=== PATIENT | female | born 1995 | race African-American/Black ===

== ENCOUNTER 2017-08-26 01:52 | Emergency (ER) | payer OTHER ==
[2017-08-26 02:08] VITALS: BMI 23.4
--- NOTE | 2017-08-26 03:49 | PDOC ---
History of Present Illness - General Chief Complaint: Pain Stated Complaint: ABDOMINAL PAIN Time Seen by Provider: 08/26/17 02:26 - History of Present Illness Initial Comments: 08/26/17 03:49 CHIEF COMPLAINT: suprapubic pain HISTORY OF PRESENT ILLNESS: 21 yo F with hx of recent miscarriage presents to ED with severe suprapubic and b/l pelvic pain since tonight. Patient denies any nausea, vomiting, or diarrhea, and that her last bowel movement was today. Patient denies any vaginal bleeding or unusual discharge. Patient reports negative STD testing 3 months ago. PAST MEDICAL HISTORY: Denies past medical history FAMILY HISTORY: Denies SOCIAL HISTORY: Denies tobacco, alcohol, illicit drug use. SURGICAL HISTORY: Denies ALLERGIES: No known drug allergies REVIEW OF SYSTEMS General/Constitutional: Denies fever or chills. Denies weakness, weight change. HEENT: Denies change in vision. Denies ear pain or discharge. Denies sore throat. Cardiovascular: Denies chest pain or shortness of breath. Respiratory: Denies cough, wheezing, or hemoptysis. Gastrointestinal: Denies nausea, vomiting, diarrhea or constipation. Denies rectal bleeding. Genitourinary: Suprapubic pain. Denies dysuria, frequency, or change in urination. Musculoskeletal: Denies joint or muscle swelling or pain. Denies neck or back pain. Skin and breasts: Denies rash or easy bruising. Neurologic: Denies headache, vertigo, loss of consciousness, or loss of sensation. Psychiatric: Denies depression or anxiety. PHYSICAL EXAM General Appearance: Well-appearing, appropriately dressed. No apparent distress. HEENT: EOMI, PERRLA, normal ENT inspection, normal voice, TMs normal, pharynx normal. No conjunctival pallor. No photophobia, scleral icterus. Respiratory/Chest: Lungs CTAB. Cardiovascular: RRR. S1, S2. Gastrointestinal/Abdominal: Normal bowel sounds. Abdomen soft, non-distended. No tenderness or rebound tenderness. No organomegaly, pulsatile mass, guarding , hernia, hepatomegaly, splenomegaly. Pelvic: External genitalia normal without lesions. Vaginal vault is clear without blood or discharge. Cervix is long and closed. +Chandelier's sign, CMT and b/l adnexal tenderness. Uterus is nontender and normal in size. Adnexa are nontender and without masses. Musculoskeletal/Extremities: Normal inspection. FROM of all extremities, normal capillary refill. Pelvis Stable. No CVA tenderness. No tenderness to extremities, pedal edema, swelling, erythema or deformity. Integumentary: Appropriate color, dry, warm. No cyanosis, erythema, jaundice or rash Neurologic: learning services coordinator II-XII intact. Fully oriented, alert. Appropriate mood/affect. Motor strength 5/5. No appreciable EOM palsy, facial droop or sensory deficit. Past History - Past Medical History Allergies/Adverse Reactions: Allergies Allergy/AdvReac Type Severity Reaction Status Date / Time No Known Allergies Allergy Verified 08/26/17 05:24 Home Medications: Ambulatory Orders NK [No Known Home Medication] 08/26/17 - Suicide/Smoking/Psychosocial Hx Smoking History: Never smoked Information on smoking cessation initiated: No Hx Alcohol Use: No Drug/Substance Use Hx: No *Physical Exam - Vital Signs Last Vital Signs Temp Pulse Resp BP Pulse Ox 98.3 F 106 H 20 92/53 100 08/26/17 01:56 08/26/17 01:56 08/26/17 01:56 08/26/17 01:56 08/26/17 01:56 ED Treatment Course - LABORATORY CBC & Chemistry Diagram: 08/26/17 05:48 08/26/17 05:48 Medical Decision Making - Medical Decision Making 21 yo F with hx of recent miscarriage presents to ED with severe suprapubic and b/l pelvic pain since tonight. -UA, UCx, Upreg -CBC, CMP Positive test. Concern for retained products of conception vs ectopic vs PID. -Ct/GC cervical swab sent -TVUS -IV Tylenol for pain Case discussed in detail with oncoming emergency provider including history, physical exam and ancillary studies. In brief, this patient is being seen in the ED for a chief complaint of: suprapubic/pelvic pain I have completed the initial assessment interview note and have ordered the following labs: CBC, CMP, UA, UCx, Upreg I have reviewed the following results: UA, UCx, Upreg Pending results: CMP Plan for disposition as follows: pending Patient signed out to MD Quintanilla and EM residents.
[2017-08-26 04:51] LABS: URINE APPEARANCE SLCLOUDY; URINE BILIRUBIN NEGATIVE (NEGATIVE); URINE BLOOD NEGATIVE (NEGATIVE); URINE COLOR YELLOW; URINE GLUCOSE (UA) NEGATIVE (NEGATIVE); URINE KETONE NEGATIVE (NEGATIVE); URINE LEUK ESTERASE NEGATIVE (NEGATIVE); URINE NITRITE NEGATIVE (NEGATIVE); URINE PROTEIN NEGATIVE (NEGATIVE)
[2017-08-26] MEDS ORDERED: SODIUM CHLORIDE 0.9% 1000 ML INFUS.BAG IV ONE (05:14)
[2017-08-26] MEDS ORDERED: KETOROLAC TROMETHAMINE 30 MG/1 ML VIAL IVPUSH ONE (05:14)
--- NOTE | 2017-08-26 05:40 | PDOC ---
*Physical Exam - Vital Signs Last Vital Signs Temp Pulse Resp BP Pulse Ox 98.3 F 106 H 20 92/53 100 08/26/17 01:56 08/26/17 01:56 08/26/17 01:56 08/26/17 01:56 08/26/17 01:56 ED Treatment Course - LABORATORY CBC & Chemistry Diagram: 08/26/17 05:48 08/26/17 05:48 - ADDITIONAL ORDERS Additional order review: Laboratory Results 08/26/17 04:40 Urine Color Yellow Urine Appearance Slcloudy Urine pH 6.0 Ur Specific [place] 1.028 Urine Protein Negative Urine Glucose (UA) Negative Urine Ketones Negative Urine Blood Negative Urine Nitrite Negative Urine Bilirubin Negative Urine Urobilinogen 2.0 H Urine HCG, Qual Positive Medical Decision Making - Medical Decision Making 08/26/17 05:40 agree with care from JENNI Mcdonald *DC/Admit/Observation/Transfer Diagnosis at time of Disposition: , PID (acute pelvic inflammatory disease) - Discharge Dispostion Disposition: HOME Condition at time of disposition: Good - Prescriptions Prescriptions: Doxycycline Hyclate 100 mg PO BID #28 tablet - Referrals Referrals: Ruddy Rajput MD [Staff Physician] - - Patient Instructions Printed Discharge Instructions: DI for Pelvic Inflammatory Disease Additional Instructions: Please return to the ED in two days as discussed. It is critical that you are seen to follow up your bHCG, which was 83 today. In addition, please call to make an appointment with Dr Rajput or any other OBGYN doctor for follow up in the next week. Please return if you have any new, worsening or concerning symptoms. - Post Discharge Activity
[2017-08-26 05:56] LABS: BASO % 0.4 % (0-2.0); EOS % 0.5 % (0-4.5); MCH 29.4 pg (25.7-33.7); MCHC 33.3 g/dl (32.0-36.0); MEAN CELL VOLUME 88.3 fl (80-96); MEAN PLT VOLUME 7.7 fl (7.5-11.1); PLATELET COUNT 257 K/MM3 (134-434); RDW 12.9 % (11.6-15.6); WHITE BLOOD COUNT 5.4 K/mm3 (4.0-10.0)
[2017-08-26 06:10] LABS: INR 1.16 (0.82-1.09); PROTHROMBIN TIME (PATIENT) 13.1 SEC (9.98-11.88)
[2017-08-26 06:20] LABS: ALBUMIN 3.3 g/dl (3.4-5.0); ALK PHOS 45 U/L (45-117); ANION GAP 6 (8-16); BILIRUBIN,TOTAL 0.2 mg/dL (0.2-1.0); CALCIUM 7.9 mg/dL (8.5-10.1); CO2 24 mmol/L (21-32); CREATININE 0.5 mg/dL (0.55-1.02); GLUCOSE,RANDOM 89 mg/dL (74-106); SGOT/AST 12 U/L (15-37); SGPT/ALT 14 U/L (12-78)
[2017-08-26] MEDS ORDERED: ACETAMINOPHEN 1000 MG/100 ML VIAL (NON FORMULARY) IVPB ONE (06:48)
[2017-08-26] MEDS ORDERED: ACETAMINOPHEN INJECTION 100 ML IVPB ONE (07:04)
[2017-08-26] MEDS ORDERED: AZITHROMYCIN 1 GM PACKET PO ONE (11:29)
[2017-08-26] MEDS ORDERED: DOXYCYCLINE HYCLATE 100 MG CAPSULE PO ONE ×2 (11:30→11:38)
[2017-08-26] MEDS ORDERED: AZITHROMYCIN 500 MG TABLET ONE (11:37)
--- NOTE | 2017-08-26 11:37 | PDOC ---
*Physical Exam - Vital Signs Last Vital Signs Temp Pulse Resp BP Pulse Ox 98.3 F 95 H 16 106/59 100 08/26/17 01:56 08/26/17 08:32 08/26/17 08:32 08/26/17 08:32 08/26/17 08:32 - Physical Exam Comments: 08/26/17 11:32 GENERAL: Awake, alert, and fully oriented, in no acute distress HEAD: No signs of trauma, normocephalic, atraumatic EYES: PERRLA, EOMI, sclera anicteric, conjunctiva clear NECK: Normal ROM, supple, no lymphadenopathy, JVD, or masses EXTREMITIES: Normal inspection, Normal range of motion, no edema. No clubbing or cyanosis. NEUROLOGICAL: Cranial nerves II through XII grossly intact. Normal speech, no focal sensorimotor deficits ED Treatment Course - LABORATORY CBC & Chemistry Diagram: 08/26/17 05:48 08/26/17 05:48 - ADDITIONAL ORDERS Additional order review: Laboratory Results 08/26/17 08/26/17 08/26/17 05:48 05:48 05:48 PT with INR 13.10 H INR 1.16 H Sodium 141 Potassium 3.9 Chloride 111 H Carbon Dioxide 24 Anion Gap 6 L BUN 10 Creatinine 0.5 L Creat Clearance w eGFR > 60 Random Glucose 89 Calcium 7.9 L Total Bilirubin 0.2 AST 12 L ALT 14 Alkaline Phosphatase 45 Total Protein 6.0 L Albumin 3.3 L Beta HCG, Quant 83.4 Urine Color Urine Appearance Urine pH Ur Specific [place] Urine Protein Urine Glucose (UA) Urine Ketones Urine Blood Urine Nitrite Urine Bilirubin Urine Urobilinogen Urine HCG, Qual 08/26/17 04:40 PT with INR INR Sodium Potassium Chloride Carbon Dioxide Anion Gap BUN Creatinine Creat Clearance w eGFR Random Glucose Calcium Total Bilirubin AST ALT Alkaline Phosphatase Total Protein Albumin Beta HCG, Quant Urine Color Yellow Urine Appearance Slcloudy Urine pH 6.0 Ur Specific [place] 1.028 Urine Protein Negative Urine Glucose (UA) Negative Urine Ketones Negative Urine Blood Negative Urine Nitrite Negative Urine Bilirubin Negative Urine Urobilinogen 2.0 H Urine HCG, Qual Positive 08/26/17 05:48 RBC 3.73 MCV 88.3 MCHC 33.3 RDW 12.9 MPV 7.7 Neutrophils % 48.0 Lymphocytes % 41.4 H Monocytes % 9.7 Eosinophils % 0.5 Basophils % 0.4 - Medications Given in the ED: ED Medications Discontinued Medications Generic Name Dose Route Start Last Admin Trade Name Reuben PRN Reason Stop Dose Admin Acetaminophen 1,000 mg 08/26/17 06:48 08/26/17 07:07 Ofirmev Injection - IVPB 08/26/17 06:49 1,000 mg ONCE ONE Administration Ketorolac Tromethamine 30 mg 08/26/17 05:14 08/26/17 05:48 Toradol Injection - IVPUSH 08/26/17 05:15 Not Given ONCE ONE Sodium Chloride 1,000 ml 08/26/17 05:14 08/26/17 05:48 Normal Saline - IV 08/26/17 05:15 1,000 ml ONCE ONE Administration Medical Decision Making - Medical Decision Making 08/26/17 11:32 Recieved signout from JENNI Mcdonald. Patient is 21F, had recent miscarriage/ in mid July. BHCG positive to 83 today. Pelvic exam notable for CMT. Ultrasound shows no IUP. Patient has no set OB care. Plan to treat for PID and set patient up for bhcg follow-up. Dr Rajput consulted. He recs patient come back to ER due to holiday, it's unlikely patient will be able to see anyone in clinic on a Wednesday. Will see patient as an outpatient. *DC/Admit/Observation/Transfer Diagnosis at time of Disposition: PID (acute pelvic inflammatory disease) Qualifiers: Weeks of gestation: less than 8 weeks Qualified Code(s): Z3A.01 - Less than 8 weeks gestation of - Discharge Dispostion Disposition: HOME Condition at time of disposition: Good Admit: No - Prescriptions Prescriptions: Doxycycline Hyclate 100 mg PO BID #28 tablet - Referrals Referrals: Ruddy Rajput MD [Staff Physician] - - Patient Instructions Printed Discharge Instructions: DI for Pelvic Inflammatory Disease Additional Instructions: Please return to the ED in two days as discussed. It is critical that you are seen to follow up your bHCG, which was 83 today. In addition, please call to make an appointment with Dr Rajput or any other OBGYN doctor for follow up in the next week. Please return if you have any new, worsening or concerning symptoms. - Post Discharge Activity
[2017-08-26] MEDS ORDERED: CEFTRIAXONE 1 GM/50 ML BAG ONE (11:38)
[2017-08-26 11:49] LABS: URINE LEUK ESTERASE Negative (NEGATIVE)
[2017-08-26 11:57] VITALS: BP 97/57; PULSE 14; TEMP 98.2
--- NOTE | 2017-08-28 08:21 | PDOC ---
Patient Follow-up (Call Back) - Post ED Follow - Up Condition at time of discharge: Good Disposition at time of original discharge: HOME Reason for Call Back: Abnwl. Microbiology (Sent prelim shows lactose fermenting negative bacilli. Patient given azithromycin and ceftriaxone in the ED and patient was discharged with doxycycline for PID. Patient currently . Will await final report.)
--- NOTE | 2017-08-29 07:50 | PDOC ---
Patient Follow-up (Call Back) - Post ED Follow - Up Condition at time of discharge: Good Disposition at time of original discharge: HOME Reason for Call Back: Abnwl. Microbiology (Final report shows Escherichia coli. Patient was given 1 dose of ceftriaxone secondary to STD workup. Patient called at the contact number [phone] and left message to call back.)
--- NOTE | 2017-09-01 13:24 | EKG ---
Test Reason : Blood Pressure : / mmHG Vent. Rate : 080 BPM Atrial Rate : 080 BPM P-R Int : 146 ms QRS Dur : 078 ms QT Int : 368 ms P-R-T Axes : 071 057 060 degrees QTc Int : 424 ms NORMAL SINUS RHYTHM POSSIBLE LATERAL INFARCT , AGE UNDETERMINED ABNORMAL ECG NO PREVIOUS ECGS AVAILABLE Confirmed by CHYNA MERLOS MD ([id number]) on 09/01/2017 1:24:31 PM Referred By: Confirmed By:CHYNA MERLOS MD
== END 2017-08-26 12:05 | disposition home or self-care (01) ==
LOC: JER 01:52
PROC: 3E02329 Introduction of Other Anti-infective into Muscle, Percutaneous Approach (ICD-10-PCS; principal; 2017-08-26)
PROC: 3E033NZ Introduction of Analgesics, Hypnotics, Sedatives into Peripheral Vein, Percutaneous Approach (ICD-10-PCS; 2017-08-26)
DX: O99.89 Other specified diseases and conditions complicating pregnancy, childbirth and the puerperium (principal); N73.8 Other specified female pelvic inflammatory diseases; B96.20 Unspecified Escherichia coli [E. coli] as the cause of diseases classified elsewhere; Z3A.01 Less than 8 weeks gestation of pregnancy
CPT/HCPCS: 36415; 76817-TC; 80053; 81003; 84702; 84703; 85025; 85610; 87086; 87186; 87491; 87591; 93005; 93010; 99282-25